=== PATIENT | male | born 1965 | race American Indian/Alaskan Native ===

== ENCOUNTER 2017-09-13 08:16 | Outpatient (CLI) | payer MEDICARE, OTHER ==
--- NOTE | 2017-09-13 09:30 | MRI ---
MRI THORACIC SPINE NONCONTRAST: HISTORY: Back pain with bilateral hand radiculopathy. FINDINGS: Vertebral body height and alignment are maintained. There is desiccation of all of the intervertebra l disks and scattered mild discogenic end plate changes within the bone marrow. The neural foramina remain patent. Degenerative changes of the cervical spine are partially visualized on the sagittal images. Significant findings are as follows: C5-6: Posterior osteophyte from the vertebral bodies and disk bulge is more pronounced to the right of midline, slightly effacing the right ventral aspect of the thecal sac and contacting but not compr essing the spinal cord. C6-7: There is disk space narrowing. Posterior osteophyte/disk complex effaces the ventral aspect o f the thecal sac but does not significantly compress the spinal cord. T7-8: Posterior osteophyte/disk complex effaces the right ventral aspect of the thecal sac and spina l cord. Significant CSF cushion remains posterior to the cord. There is no abnormal signal within t he cord. IMPRESSION: Degenerative changes most pronounced at the midthoracic spine, as detailed above. No evidence of mye lomalacia. No focal nerve root compression. POS: CONRADO
== END 2017-09-13 08:17 | disposition home or self-care (01) ==
LOC: TBSIIMAG 08:16
PROVIDERS: ATTEND Anesthesiology Pain Medicine
DX: M47.812 Spondylosis without myelopathy or radiculopathy, cervical region (principal)
CPT/HCPCS: 72146

== ENCOUNTER 2017-10-15 09:23 | Outpatient (CLI) | payer MEDICARE, OTHER ==
--- NOTE | 2017-10-15 11:25 | RAD ---
LUMBAR SPINE SERIES THREE VIEWS INCLUDING FLEXION AND EXTENSION: History: Back pain. FINDINGS: Vertebral bodies are normal in height. Degenerative osteophytes are seen along the course of the lumb ar spine. There is marked disc narrowing at L5-S1. I do not see any abnormal motion in flexion or ext ension. IMPRESSION: Marked degenerative disc narrowing at L5-S1. No spondylolisthesis. POS: C
--- NOTE | 2017-10-15 12:08 | RAD ---
CERVICAL SPINE SEVEN VIEWS: HISTORY: Cervical stenosis with neck pain. COMPARISON: None. FINDINGS: AP, lateral, Swimmer's, oblique, and open-mouth odontoid views of the cervical spine were performed. Vertebral bodies demonstrate normal height and alignment without fracture or subluxation. Osteophyt es are seen surrounding the C4-C5 intervertebral disk, which is mildly narrowed. No significant prev ertebral soft tissue swelling is seen. No neural foraminal stenosis is seen on the oblique images. Alignment is unchanged with flexion and extension. IMPRESSION: Degenerative changes of the cervical spine with unchanged alignment with bending. POS: [facility]
== END 2017-10-15 09:24 | disposition home or self-care (01) ==
LOC: TBSIIMAG 09:23
PROVIDERS: ATTEND Anesthesiology Pain Medicine
DX: M47.812 Spondylosis without myelopathy or radiculopathy, cervical region (principal); M48.062 Spinal stenosis, lumbar region with neurogenic claudication; M47.816 Spondylosis without myelopathy or radiculopathy, lumbar region; M48.02 Spinal stenosis, cervical region
CPT/HCPCS: 72052; 72100